=== PATIENT | male | born 1985 | race Two or more races ===

== ENCOUNTER 2022-08-22 20:04 | Emergency (ER) | payer MEDICAID, OTHER ==
[~2022-08-22] VITALS: Ht 175.3 cm; Wt 99.8 kg
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
--- NOTE | 2022-08-22 20:07 | NUR ---
PT A/OX4. AMBULATORY WITH STEADY GAIT.
--- NOTE | 2022-08-22 20:19 | NUR ---
Edy huitron in ED - 08/22/22 at 2020 by EVANGELISTA [facility]. Written and verbal after care instructions given. Patient verbalizes understanding of instruction.
--- NOTE | 2022-08-22 21:02 | NUR ---
COVID SWAB COLLECTED AND SENT TO LAB
[2022-08-22 22:01] LABS: BASOPHILS # (AUTO) 0.2 K/uL (0.0-0.2); BASOPHILS % (AUTO) 2.4 % (0.0-2.0); HEMATOCRIT 43 % (39-51); HEMOGLOBIN 14.4 g/dL (13.5-17.5); LYMPHOCYTES # (AUTO) 1.7 K/uL (0.8-4.8); MEAN CORPUSCULAR HGB CONC 34 g/dl (31.0-36.0); MEAN CORPUSCULAR VOLUME 87 fL (80-96); MONOCYTES # (AUTO) 0.5 K/uL (0.1-1.30); MONOCYTES % (AUTO) 7.8 % (2.0-12.0); NEUTROPHILS # (AUTO) 3.9 K/uL (1.8-8.9); NEUTROPHILS % (AUTO) 60.8 % (43.0-81.0); PLATELET COUNT (AUTO) 262 K/uL (150-450); RED BLOOD CELL COUNT(AUTO) 4.95 MIL/uL (4.5-6.0); WHITE BLOOD COUNT (AUTO) 6.4 K/uL (4.3-11.0)
[2022-08-22 22:13] LABS: CALCIUM, SERUM 8.9 mg/dL (8.5-10.1); CARBON DIOXIDE 25 mmol/L (21-32); CHLORIDE 101 mmol/L (98-107); CREATININE 1.1 mg/dL (0.6-1.3); GLUCOSE 165 mg/dL (74-106); POTASSIUM 4.1 mmol/L (3.5-5.1); SODIUM SERUM 139 mmol/L (136-145); UREA NITROGEN, BLOOD 6 mg/dL (7-18)
[2022-08-22 22:16] LABS: ALANINE AMINOTRANSFERASE 262 U/L (12-78); ALBUMIN 4.3 g/dL (3.4-5.0); ALCOHOL, BLOOD 297 mg/dL (0-10); ALKALINE PHOSPHATASE 85 U/L (46-116); ASPARTATE AMINOTRANSFERASE 100 U/L (15-37); BILIRUBIN,DIRECT 0.1 mg/dL (0.0-0.2); BILIRUBIN,TOTAL 0.3 mg/dL (0.2-1.0); TOTAL PROTEIN, SERUM 8.1 g/dL (6.4-8.2)
--- NOTE | 2022-08-22 23:43 | NUR ---
URINE COLLECTED AND SENT TO LAB
[2022-08-23 00:07] LABS: BILIRUBIN,URINE NEGATIVE (NEGATIVE); COLOR,URINE YELLOW (YELLOW); LEUKOCYTE ESTERASE ,URINE NEGATIVE (NEGATIVE); NITRITE, URINE NEGATIVE (NEGATIVE); PROTEIN,URINE NEGATIVE (NEGATIVE); UGLUCOSE NEGATIVE (NEGATIVE); UROBILINOGEN,URINE 0.2 EU/dL (0.2)
--- NOTE | 2022-08-23 09:52 | NUR ---
EXT 250 TO GIVE REPORT. NO BED YET, SO RHIANNON MÉNDEZ WILL CALL BACK. ACCEPTING IS DR. GATES
--- NOTE | 2022-08-23 10:03 | NUR ---
TRANSPORT WILL ETA 1200
[2022-08-23 12:30] VITALS: BP 122/84
--- NOTE | 2022-08-23 13:46 | NUR ---
Facility Referral: LINDSAY sent clinicals to Mike from [facility] ([phone]). LINDSAY sent packet.
--- NOTE | 2022-08-23 14:35 | NUR ---
SW consult requested for ETOH abuse. Patient brought to the hospital due to alcohol withdrawal. SW found him on the floor of room 18 in the ER. Patient appeared to be alert and oriented x2(self,place). Patient was cooperative with this va underwriter while conducting the assessment. Patient appeared to present with a flat affect. Patient appeared to be somewhat confused. He did require constant re-direct when assessing the patient. He did not tell this va underwriter the amount of alcohol he consumes but mentioined that he feels powrless over alcohol. Patient stated that he does not have any support at this time. He did stated that he lives at a usp located at [address] [place] [address]. SW assessed for suicidal or homicidal ideation and pt denied. Pt denied visual/auditory hallucinations. DC PLAN: Pt is being transferred to [facility]. Substance Abuse resources provided included: [facility] Substance Abuse Self-Helpline ([facility]) ; [facility] [id number] [facility] [place] [id number] ; [facility] [address] [facility] [phone] ; [facility] [address] [facility] [phone] ; [facility] [phone] ; [facility] [address] [facility] [phone] ; [facility] [address] [facility] [phone] ; [facility] Substance Abuse Helpline([facility] ; [facility] ; [facility] [place]; [facility] [place]; [facility] [place] [facility]; [facility] [place], [facility]. Mati Wiggins; Alcoholics Anonymous [facility]; Hilda ; Marijuana Anonymous [facility]; Narcotics Anonymous www.na.org;
--- NOTE | 2022-08-23 15:14 | NUR ---
Per Mike the pt is accepted to [facility]. ETA 2 minutes. Perorted to ER to have them call [phone] to report on the patient.
== END 2022-08-23 15:50 ==
LOC: ER 20:06
DX: R45.851 Suicidal ideations (principal); R46.1 Bizarre personal appearance; Z59.00 Homelessness unspecified; Z20.822 Contact with and (suspected) exposure to COVID-19; Y90.8 Blood alcohol level of 240 mg/100 ml or more
CPT/HCPCS: 99285; 85025; 80048; 80076; 81003; 36415 ×2; 87426; 80143; 80320 ×2; 80307; C9803; G0480